=== PATIENT | female | born 1970 | race Caucasian/White ===

== ENCOUNTER 2019-02-01 22:11 | Observation (INO) | payer OTHER ==
[2019-02-01 22:17] VITALS: BMI 26.6
--- NOTE | 2019-02-01 22:31 | PDOC ---
History of Present Illness <Shayna La - Last Filed: 02/02/19 02:01> <Mamie Petersen - Last Filed: 02/03/19 18:43> - General Chief Complaint: CVA/TIA Stated Complaint: POSSIBLE STROKE Time Seen by Provider: 02/01/19 22:30 tPA Exclusion Checklist 0-3hr - Time Elapsed Date last known well: 02/01/19 Time last known well: 21:55 Elaspsed time: 1 Day(s) and 20 Hour(s) and 47 Minutes - Thrombolytic Therapy Candidate Is the patient eligible for Thrombolytic Therapy?: No - Relative Exclusion Criteria 0-3h Stroke severity too mild: Yes - Ineligibility reason(s) Reasons No tPA given: See reason(s) noted above <Mamei Petersen - Last Filed: 02/03/19 18:43> Past History <Shayna La - Last Filed: 02/02/19 02:01> - Past Medical History COPD: No - Suicide/Smoking/Psychosocial Hx Smoking Status: No Smoking History: Never smoked Number of Cigarettes Smoked Daily: 0 <Mamie Petersen - Last Filed: 02/03/19 18:43> - Past Medical History Allergies/Adverse Reactions: Allergies Allergy/AdvReac Type Severity Reaction Status Date / Time No Known Allergies Allergy Verified 04/23/16 19:54 Home Medications: Ambulatory Orders Acyclovir [Zovirax -] 400 mg PO TID #21 tablet 02/03/19 Aspirin Coated [Ecotrin -] 81 mg PO DAILY #30 tablet.ec 02/03/19 Atorvastatin Ca [Lipitor] 40 mg PO HS #30 tablet 02/03/19 Dextran 70/Hypromellose/Pf [Artificial Tears Drops] 1 each OP TID 7 Days #1 droperette 02/03/19 Levothyroxine [Synthroid -] 25 mcg PO DAILY #30 tablet 02/03/19 Prednisone See Taper PO DAILY #21 tablet 02/03/19 *Physical Exam - Vital Signs Last Vital Signs Temp Pulse Resp BP Pulse Ox 98.7 F 73 18 113/67 100 02/01/19 22:15 02/01/19 23:22 02/01/19 23:22 02/01/19 23:22 02/01/19 23:22 <Shayna La - Last Filed: 02/02/19 02:01> - Vital Signs Last Vital Signs Temp Pulse Resp BP Pulse Ox 98.7 F 80 18 126/69 97 02/01/19 22:15 02/01/19 22:15 02/01/19 22:15 02/01/19 22:15 02/01/19 22:15 <Mamie Petersen - Last Filed: 02/03/19 18:43> ED Treatment Course - LABORATORY CBC & Chemistry Diagram: 02/01/19 22:45 02/01/19 22:45 - ADDITIONAL ORDERS Additional order review: Laboratory Results 02/01/19 02/01/19 02/01/19 22:45 22:45 22:45 PT with INR 11.60 INR 0.98 PTT (Actin FS) 34.4 Sodium 139 Potassium 4.1 Chloride 106 Carbon Dioxide 26 Anion Gap 7 L BUN 8.6 Creatinine 0.8 Est GFR (CKD-EPI)AfAm 101.04 Est GFR (CKD-EPI)NonAf 87.18 Random Glucose 73 L Calcium 9.0 Total Bilirubin 0.3 AST 12 L ALT 21 Alkaline Phosphatase 62 Creatine Kinase 112 Troponin I < 0.02 Total Protein 8.2 Albumin 4.1 Triglycerides 156 H Cholesterol 264 H Total LDL Cholesterol 186 H HDL Cholesterol 65 H Serum , Qual 02/01/19 22:38 PT with INR INR PTT (Actin FS) Sodium Potassium Chloride Carbon Dioxide Anion Gap BUN Creatinine Est GFR (CKD-EPI)AfAm Est GFR (CKD-EPI)NonAf Random Glucose Calcium Total Bilirubin AST ALT Alkaline Phosphatase Creatine Kinase Troponin I Total Protein Albumin Triglycerides Cholesterol Total LDL Cholesterol HDL Cholesterol Serum , Qual Negative 02/01/19 22:45 RBC 4.86 MCV 83.1 MCHC 33.0 RDW 14.8 D MPV 8.6 Neutrophils % 52.1 Lymphocytes % 35.6 Monocytes % 9.2 Eosinophils % 2.6 Basophils % 0.5 - RADIOLOGY Radiology Studies Ordered: Category Date Time Status HEAD CT (STROKE) [CT] Stat CT Scan 02/01/19 22:32 Completed <Shayna La - Last Filed: 02/02/19 02:01> - LABORATORY CBC & Chemistry Diagram: 02/03/19 06:02 02/03/19 06:02 <Mamie Petersen - Last Filed: 02/03/19 18:43> Medical Decision Making - Medical Decision Making HPI: 48 yo F with PMH of migraines with aura, hypothyroidism presenting with right sided facial droop and slurred speech. Family members are at the bedside providing collateral history. About 15 minutes prior to arrival, patient was in conversation with her son. Her son told her he was leaving for [facility] with friends and she became very anxious, complained of R. sided facial numbness and pain and had a drooping smile on the right. No history of stroke. Patient denies fever, chills, chest pain, or shortness of breath. ROS: Constitutional: no fever, no chills HEENT: no throat pain, no dysphagia Cardiovascular: no chest pain, no palpitations Respiratory: no cough, no shortness of breath Gastrointestinal: no abdominal pain, no nausea Genitourinary: no dysuria, no hematuria Musculoskeletal: no myalgia, no arthralgia Skin: no rash, no itching Neurologic: +R. sided drooping smile, +slurred speech PE: General: Awake, alert, and fully oriented, in no acute distress Head: No signs of trauma Eyes: EOMI, sclera anicteric ENT: Moist mucus membranes Neck: Normal ROM, supple Lungs: Lungs clear, Normal breath sounds Cardio: Regular rhythm, S1 and S2 present Abdomen: Soft, nontender. No guarding, no rebound, no masses Extremities: Normal range of motion, Distal pulses present SKIN: Warm, Dry, normal turgor Neurologic: Please see NIHSS documentation. Drooping smile on the right. ED Courses/MDM: DDX including but not limited to CVA/TIA, Psych, complex migraine, secondary gain 02/01/19 23:29 Patient with incongruent exam. For me, patient was unable to resist gravity when asked to keep her BLE up. However, was able to perform [id number] without any difficulty. lift team technician also witnessed the patient stand without difficulty while assisting her to the bathroom. Will reassess 02/01/19 23:33 Patient reports improved facial symptoms, but still endorses unequal sensation the right vs. left side of her face. CBC WBC 7.9 K/mm3 (4.0-10.0) 02/01/19 22:45 RBC 4.86 M/mm3 (3.60-5.2) 02/01/19 22:45 Hgb 13.4 GM/dL (10.7-15.3) 02/01/19 22:45 Hct 40.4 % (32.4-45.2) D 02/01/19 22:45 MCV 83.1 fl (80-96) 02/01/19 22:45 MCH 27.5 pg (25.7-33.7) D 02/01/19 22:45 MCHC 33.0 g/dl (32.0-36.0) 02/01/19 22:45 RDW 14.8 % (11.6-15.6) D 02/01/19 22:45 Plt Count 281 K/MM3 (134-434) D 02/01/19 22:45 MPV 8.6 fl (7.5-11.1) 02/01/19 22:45 Absolute Neuts (auto) 4.1 K/mm3 (1.5-8.0) 02/01/19 22:45 Neutrophils % 52.1 % (42.8-82.8) 02/01/19 22:45 Lymphocytes % 35.6 % (8-40) 02/01/19 22:45 Monocytes % 9.2 % (3.8-10.2) 02/01/19 22:45 Eosinophils % 2.6 % (0-4.5) 02/01/19 22:45 Basophils % 0.5 % (0-2.0) 02/01/19 22:45 Nucleated RBC % 0 % (0-0) 02/01/19 22:45 No anemia or leukocytosis CMP Sodium 139 mmol/L (136-145) 02/01/19 22:45 Potassium 4.1 mmol/L (3.5-5.1) 02/01/19 22:45 Chloride 106 mmol/L (98-107) 02/01/19 22:45 Carbon Dioxide 26 mmol/L (21-32) 02/01/19 22:45 Anion Gap 7 MMOL/L (8-16) L 02/01/19 22:45 BUN 8.6 mg/dL (7-18) 02/01/19 22:45 Creatinine 0.8 mg/dL (0.55-1.3) 02/01/19 22:45 Est GFR (CKD-EPI)AfAm 101.04 02/01/19 22:45 Est GFR (CKD-EPI)NonAf 87.18 02/01/19 22:45 Random Glucose 73 mg/dL (74-106) L 02/01/19 22:45 Calcium 9.0 mg/dL (8.5-10.1) 02/01/19 22:45 Total Bilirubin 0.3 mg/dL (0.2-1) 02/01/19 22:45 AST 12 U/L (15-37) L 02/01/19 22:45 ALT 21 U/L (13-61) 02/01/19 22:45 Alkaline Phosphatase 62 U/L (45-117) 02/01/19 22:45 Creatine Kinase 112 U/L (26-192) 02/01/19 22:45 Troponin I < 0.02 ng/ml (0.00-0.05) 02/01/19 22:45 Total Protein 8.2 g/dl (6.4-8.2) 02/01/19 22:45 Albumin 4.1 g/dl (3.4-5.0) 02/01/19 22:45 Triglycerides 156 mg/dL (0-150) H 02/01/19 22:45 Cholesterol 264 mg/dL (50-200) H 02/01/19 22:45 Total LDL Cholesterol 186 mg/dL (5-100) H 02/01/19 22:45 HDL Cholesterol 65 mg/dL (40-60) H 02/01/19 22:45 Serum , Qual Negative 02/01/19 22:38 Electrolytes unremarkable Tpn undetectable Cholesterol elevated 02/01/19 23:59 Patient now with normal neuro exam. Symmetrical smile. Patient with normal strength in her legs. She is able to keep them raised for five seconds without any drift. Patient says she no longer has abnormal sensation in her face. Patient signed out to night team. 02/02/19 00:56 <Mamie Petersen - Last Filed: 02/03/19 18:43> *DC/Admit/Observation/Transfer - Discharge Dispostion Decision to Admit order: Yes <Shayna La - Last Filed: 02/02/19 02:01> <Mamie Petersen - Last Filed: 02/03/19 18:43> Diagnosis at time of Disposition: Facial droop - Discharge Dispostion Disposition: HOME Condition at time of disposition: Stable
--- NOTE | 2019-02-01 22:46 | PDOC ---
NIH Stroke Scale - Initial Evaluation Level of consciousness: Alert Ask patient the month and their age: Answers both correctly Ask patient to open & close eyes; make fist and let go: Obeys both correctly Best gaze (horizontal eye movement): Normal Visual field testing: No visual field loss Facial paresis (Show teeth/raise eyebrows/close eyes tight): Complete paralysis of one or both sides (Upper and lower face) Motor Function: Left Arm: Normal Motor Function: Right Arm: Normal (extends arm 90 (or 45) degrees for 10 seconds without drift Motor Function: Left Leg: Normal (extends leg 30 degrees for 5 seconds without drift) Motor Function: Right Leg: Normal (extends leg 30 degrees for 5 seconds without drift) Limb Ataxia: No ataxia Sensory(Use pinprick test arms,legs,trunk,face/side to side): Normal Best language (Describe picture, name items, read sentences): No Aphasia Dysarthria (read several words): Normal articulation Extinction and Inattention: No abnormality - Total Score NIH Stroke Scale Score: 3
[2019-02-01 22:54] LABS: BASO % 0.5 % (0-2.0); EOS % 2.6 % (0-4.5); HEMATOCRIT 40.4 % (32.4-45.2); HEMOGLOBIN 13.4 GM/dL (10.7-15.3); LYMPH % 35.6 % (8-40); MCH 27.5 pg (25.7-33.7); MEAN CELL VOLUME 83.1 fl (80-96); MEAN PLT VOLUME 8.6 fl (7.5-11.1); MONO % 9.2 % (3.8-10.2); NEUT % 52.1 % (42.8-82.8); PLATELET COUNT 281 K/MM3 (134-434); RBC 4.86 M/mm3 (3.60-5.2); RDW 14.8 % (11.6-15.6); WHITE BLOOD COUNT 7.9 K/mm3 (4.0-10.0)
[2019-02-01 23:11] LABS: INR 0.98 (0.83-1.09); PROTHROMBIN TIME (PATIENT) 11.6 SEC (9.7-13.0)
[2019-02-01 23:14] LABS: ACTIVATED PTT 34.4 SECONDS (25.2-36.5)
[2019-02-01 23:17] LABS: ALBUMIN 4.1 g/dl (3.4-5.0); BILIRUBIN,TOTAL 0.3 mg/dL (0.2-1); BLOOD UREA NITROGEN 8.6 mg/dL (7-18); CREATININE 0.8 mg/dL (0.55-1.3); POTASSIUM 4.1 mmol/L (3.5-5.1); TOT PROT 8.2 g/dl (6.4-8.2)
[2019-02-01] MEDS: SODIUM CHLORIDE 1,000 ML IV SCH (23:41)
--- NOTE | 2019-02-02 00:08 | PDOC ---
Documentation entered by Beatriz Styles SCRIBE, acting as scribe for Crystal Reynolds MD. Crystal Reynolds MD: This documentation has been prepared by the Jensen moy Brenda, SCRIBE, under my direction and personally reviewed by me in its entirety. I confirm that the documentation accurately reflects all work, treatment, procedures, and medical decision making performed by me. Attending Attestation - Resident Resident Name: Mamie Petersen - ED Attending Attestation I have performed the following: I have examined & evaluated the patient, The case was reviewed & discussed with the resident, I agree w/resident's findings & plan, Exceptions are as noted - HPI HPI: 02/01/19 23:37 The patient is a 48 year old female, with a significant PMH of migraines with auras and hypothyroidism, who presents to the emergency department BIB with a right sided facial droop and slurred speech, as per family. As per family, on the bedside, 15 minutes prior to arrival, patient was conersing fine with her son, who told her he was leaving to [place] with some friends, which madee hr very anxious, where symptoms began. Patient denies a history of stroke. The patient denies chest pain, shortness of breath.Denies fever, chills, nausea , vomiting, diarrhea and constipation. Denies urinary symptoms. Denies any other symptoms. Allergies: NKA Social history: Denies any tobacco use or alcohol use. PCP: Sathya - Physicial Exam PE: 02/01/19 23:11 GENERAL: Awake, alert, and fully oriented, in no acute distress HEAD: No signs of trauma EYES: PERRLA, EOMI, sclera anicteric, conjunctiva clear ENT: Auricles normal inspection, hearing grossly normal, nares patent, oropharynx clear without exudates. Moist mucosa NECK: Normal ROM, supple, no lymphadenopathy, JVD, or masses LUNGS: Breath sounds equal, clear to auscultation bilaterally. No wheezes, and no crackles HEART: Regular rate and rhythm, normal S1 and S2, no murmurs, rubs or gallops ABDOMEN: Soft, nontender, normoactive bowel sounds. No guarding, no rebound. No masses EXTREMITIES: Normal range of motion, no edema. No clubbing or cyanosis. No cords, erythema, or tenderness NEUROLOGICAL: +Right sided facial droop, except forehead. Cranial nerves II through XII grossly intact. Normal speech, normal gait SKIN: Warm, Dry, normal turgor, no rashes or lesions noted. - Medical Decision Making 02/02/19 00:07 Patient Name: KRISTIE GUY THIS IS A PRELIMINARY REPORT FROM [facility] DATE OF SERVICE: 2019-02-01 22:55:18 IMAGES: [id number] EXAM: CT brain without contrast and CTA brain HISTORY right-sided facial droop COMPARISON: None. FINDINGS: CT brain: The clinically suspected infarct is not definitively visible on CT at this time. There are some vaguely low density areas in the zarco radiata bilaterally but these could represent small vessel disease. Small vessel disease can obscure white matter infarcts. No hemorrhage. No mass. No shift or herniation. CTA brain: The anterior and posterior arterial circulations are patent. No stenosis or occlusion dissection or aneurysm. 02/02/19 06:39 Normal labs; only cholesterol is high. Pt will be admitted for neuro eval. Pt may need MRI in the AM.
--- NOTE | 2019-02-02 03:08 | PN ---
Teaching Attending Note Name of Resident: Liz Manrique ATTENDING PHYSICIAN STATEMENT I saw and evaluated the patient. I reviewed the resident's note and discussed the case with the resident. I agree with the resident's findings and plan as documented. Seen and examined; please refer to resident note for further historical information. Briefly, this is a 48 y/o female presenting to the ER with a CC of R-facial droop, parasthesias, weakness; her sx have resolved and she would have presented outside of the tPA window. She had this presentation following emotionally charged personal issue. VS, labs, imaging reviewed NIHSS is 0, CN2-12 wnl, no fnd Normal mood, appropriate behavior NC AT EOMI PERRLA NAD, resting in bed NT ND +BS RRR s1/2 CT head negative Echo, carotid doppler, MRI brain pendign On telemetry EKG reviewed; no ST-T changes or Afib ASSESSMENT AND PLAN: Patient presents with symptoms suspicious for TIA following emotional confrontation at home; negative initial CT, found to be hyperlipidemic. Starting on statin, ASA, and neurology will see in AM. # TIA vs. conversion, etc. -No recurrance sx; did occur following emotional instance. Tele, neuro consult , MRI/echo/carotids/PT/Swallow eval. Check B12/TSH/RPR/ESR/CRP. Further management per neuro. Started on ASA and high-intensity statin. # HLD -Started on statin, followup CMP DVT px: Lovenox Full Code
[2019-02-02 03:48] LABS: COCAINE, UR NEGATIVE ng/ml (CUTOFF=300); METHADONE, UR NEGATIVE ng/ml (CUTOFF=300); OPIATES, URI NEGATIVE ng/ml (CUTOFF=300); PHENCYCLIDINE,URINE NEGATIVE ng/ml (CUTOFF=25); URINE AMPHETAMINES NEGATIVE ng/ml (CUTOFF=500); URINE BARBITURATES NEGATIVE ng/ml (CUTOFF=200); URINE BENZODIAZEPINES NEGATIVE ng/ml (CUTOFF=200)
[2019-02-02] MEDS ORDERED: ATORVASTATIN CA 40 MG TABLET (FP) ONE (03:48)
[2019-02-02] MEDS: ATORVASTATIN CA 40 MG TABLET (FP) PO SCH ×2 (03:50→22:14)
--- NOTE | 2019-02-02 04:26 | HP ---
CHIEF COMPLAINT: R side facial droop PCP: HISTORY OF PRESENT ILLNESS: 48 y/o F with PMH migraines w/ aura, hypothyroidism, who presents with R sided facial droop and slurred speech that occurred at 10PM on DOA. She was well prior to this. Per pt and family at bedside, pt had a family discussion which caused the pt to become "emotionally charged." She soon after developed R sided facial droop, dysarthria, and subjective L arm drift noticed by son. For this reason, pt was brought to the ED for evaluation. Was outside tPA window and equivocal neuro exam on presentation w/ NIHSS 0. Pt has never had these sx before. Denies SHELLEY, fever, chills, SOB, chest pain or pressure or changes in urinary or bowel function. Lives at home with family. ER course was notable for: (1) NIHSS 0 (2) (3) Recent Travel: denies PAST MEDICAL HISTORY: as above PAST SURGICAL HISTORY: denies Social History: Smoking: denies Alcohol: social Drugs: denies Family History: denies Allergies No Known Allergies Allergy (Verified 04/23/16 19:54) HOME MEDICATIONS: Home Medications Medication Instructions Recorded NK [No Known Home Medication] 04/23/16 confirmed with patient REVIEW OF SYSTEMS +neuro: facial droop, LUE weakness/drift PHYSICAL EXAMINATION Vital Signs 02/01/19 02/01/19 22:15 23:22 Temperature 98.7 F Pulse Rate 80 Pulse Rate [ 73 Radial] Respiratory 18 18 Rate Blood Pressure 126/69 Blood Pressure 113/67 [Right Arm] O2 Sat by Pulse 97 100 Oximetry (%) GENERAL: AAOx 3 . in NAD . pleasant HEAD: Normal with no signs of trauma. EYES: Pupils equal, round and reactive to light, extraocular movements intact, sclera anicteric, conjunctiva clear. EARS, NOSE, THROAT: Ears normal, nares patent, oropharynx clear without exudates. Moist mucous membranes. NECK: Normal range of motion, supple LUNGS: Breath sounds equal, clear to auscultation bilaterally. No wheezes, and no crackles. HEART: Regular rate and rhythm, normal S1 and S2 without murmur, rub or gallop. ABDOMEN: Soft, nontender, not distended, normoactive bowel sounds NEUROLOGICAL: Cranial nerves II-XII intact. cerebellar fnc intact. no pronator drift. sensation intact throughout. 5/5 motor strength UE, LE. PSYCHIATRIC: Cooperative. Good eye contact. SKIN: Warm, dry, normal turgor Laboratory Tests 02/01/19 02/01/19 22:45 22:45 WBC 7.9 Hgb 13.4 Hct 40.4 D Plt Count 281 D Sodium 139 Potassium 4.1 Chloride 106 Carbon Dioxide 26 BUN 8.6 Creatinine 0.8 Random Glucose 73 L Triglycerides 156 H Cholesterol 264 H Total LDL Cholesterol 186 H HDL Cholesterol [address]: no acute abnormality head CTA: no bleed, no ischemic changes EKG: NSR, HR 70's, no st-t wave changes ASSESSMENT/PLAN: 48 y/o F with PMH migraines w/ aura, hypothyroidism, who presents with R sided facial droop and slurred speech that occurred at 10PM on DOA. #R/o CVA -CTH (-) for bleed. may be ischemic event. tele monitoring x 24 hrs -f/u ECHO, carotid duplex, speech/swallow, PT -f/u TSH, b12, folate -neuro consulted- follow recs whether brain MRI needed -started on asa 81mg qd, lipitor 40mg qd. will repeat LFT's in 6 weeks -NPO, neurochecks #F/E/N encourage PO intake continue to follow lytes npo until s/s #PPX DVT: lovenox #Dispo tele obs Visit type - Emergency Visit Emergency Visit: Yes ED Registration Date: 02/02/19 Care time: The patient presented to the Emergency Department on the above date and was hospitalized for further evaluation of their emergent condition. - New Patient This patient is new to me today: Yes Date on this admission: 02/02/19 - Critical Care Critical Care patient: No ATTENDING PHYSICIAN STATEMENT I saw and evaluated the patient. I reviewed the resident's note and discussed the case with the resident. I agree with the resident's findings and plan as documented. SUBJECTIVE: OBJECTIVE: ASSESSMENT AND PLAN:
[2019-02-02 06:08] LABS: URINE APPEARANCE CLEAR; URINE BILIRUBIN NEGATIVE (NEGATIVE); URINE COLOR YELLOW; URINE GLUCOSE (UA) NEGATIVE (NEGATIVE); URINE KETONE NEGATIVE (NEGATIVE)
[2019-02-02 06:09] LABS: URINE LEUK ESTERASE N (NEGATIVE); URINE NITRITE NEGATIVE (NEGATIVE); URINE PROTEIN NEGATIVE (NEGATIVE); URINE UROBILINOGEN 0.2 mg/dL (0.2-1.0)
[2019-02-02 07:59] LABS: BASO % 0.5 % (0-2.0); EOS % 3.9 % (0-4.5); HEMATOCRIT 36.9 % (32.4-45.2); HEMOGLOBIN 12.4 GM/dL (10.7-15.3); LYMPH % 38.9 % (8-40); MCH 27.7 pg (25.7-33.7); MCHC 33.5 g/dl (32.0-36.0); MEAN CELL VOLUME 82.8 fl (80-96); MEAN PLT VOLUME 8.6 fl (7.5-11.1); NEUT % 46.7 % (42.8-82.8); PLATELET COUNT 267 K/MM3 (134-434); RBC 4.46 M/mm3 (3.60-5.2); RDW 14.4 % (11.6-15.6); WHITE BLOOD COUNT 5.6 K/mm3 (4.0-10.0)
[2019-02-02 08:07] LABS: BLOOD UREA NITROGEN 8.4 mg/dL (7-18); CALCIUM 8.4 mg/dL (8.5-10.1); CREATININE 0.7 mg/dL (0.55-1.3); MAGNESIUM 2.4 mg/dL (1.8-2.4); POTASSIUM 3.9 mmol/L (3.5-5.1)
[2019-02-02 08:14] LABS: N-TERMINAL BNP 85.5 pg/ml (5-125)
[2019-02-02] MEDS ORDERED: HEPARIN NA (PORCINE) 5,000 UNITS/ML 1ML VIAL ONE (10:05)
[2019-02-02] MEDS ORDERED: ASPIRIN COATED 81 MG TABLET.EC ONE (10:05)
[2019-02-02] MEDS: ASPIRIN COATED 81 MG TABLET.EC PO SCH (10:18)
[2019-02-02] MEDS: ENOXAPARIN NA (PORCINE) 40 MG/0.4 ML DISP.SYRIN SQ SCH (10:19)
--- NOTE | 2019-02-02 11:39 | CONSULT ---
Consult - text type - Consultation Consultation Note: NEUROLOGY HISTORY OF PRESENT ILLNESS: 48 y/o F with PMH migraines w/ aura, hypothyroidism, who presented to ER with R sided facial droop and slurred speech that occurred at 10PM on day of admission. She was well prior to this event. As per pt and family at bedside, pt had a family discussion which caused the pt to become "emotionally charged." She soon after developed R sided facial droop, dysarthria, and subjective L arm drift noticed by son. For this reason, pt was brought to the ED for evaluation. Was outside tPA window and equivocal neuro exam on presentation w/ NIHSS 0. Pt has never had these sx before. Denied SHELLEY, fever, chills, SOB, chest pain or pressure or changes in urinary or bowel function. Lives at home with family. CTA completed, awaiting official report. CT head without acute changes. Will obtain MRI to evaluate for infarct. Recent Travel: denies PAST MEDICAL HISTORY: as above PAST SURGICAL HISTORY: denies Social History: Smoking: denies Alcohol: social Drugs: denies Family History: HTN Allergies No Known Allergies Allergy (Verified 04/23/16 19:54) HOME MEDICATIONS: Home Medications Medication Instructions Recorded NK [No Known Home Medication] 04/23/16 REVIEW OF SYSTEMS +neuro: facial droop All else negative PHYSICAL EXAMINATION Vital Signs Temperature 98.7 F 02/01/19 22:15 Pulse Rate 68 02/02/19 11:05 Respiratory Rate 14 02/02/19 11:05 Blood Pressure 112/73 02/02/19 11:05 O2 Sat by Pulse Oximetry (%) 98 02/02/19 11:05 GENERAL: AAOx 3 . in NAD . pleasant HEAD: Normal with no signs of trauma. EYES: Pupils equal, round and reactive to light, extraocular movements intact, sclera anicteric, conjunctiva clear. EARS, NOSE, THROAT: Ears normal, nares patent, oropharynx clear without exudates. Moist mucous membranes. NECK: Normal range of motion, supple LUNGS: Breath sounds equal, clear to auscultation bilaterally. No wheezes, and no crackles. HEART: Regular rate and rhythm, normal S1 and S2 without murmur, rub or gallop. ABDOMEN: Soft, nontender, not distended, normoactive bowel sounds NEUROLOGICAL: R facial droop noted. cerebellar intact. no pronator drift. sensation intact throughout. Grossly moving ext equally, limited effort on confrontation PSYCHIATRIC: Cooperative. Good eye contact. SKIN: Warm, dry, normal turgor CBCD WBC 5.6 K/mm3 (4.0-10.0) 02/02/19 06:57 RBC 4.46 M/mm3 (3.60-5.2) 02/02/19 06:57 Hgb 12.4 GM/dL (10.7-15.3) 02/02/19 06:57 Hct 36.9 % (32.4-45.2) 02/02/19 06:57 MCV 82.8 fl (80-96) 02/02/19 06:57 MCHC 33.5 g/dl (32.0-36.0) 02/02/19 06:57 RDW 14.4 % (11.6-15.6) 02/02/19 06:57 Plt Count 267 K/MM3 (134-434) 02/02/19 06:57 MPV 8.6 fl (7.5-11.1) 02/02/19 06:57 CMP Sodium 140 mmol/L (136-145) 02/02/19 06:57 Potassium 3.9 mmol/L (3.5-5.1) 02/02/19 06:57 Chloride 108 mmol/L (98-107) H 02/02/19 06:57 Carbon Dioxide 25 mmol/L (21-32) 02/02/19 06:57 Anion Gap 8 MMOL/L (8-16) 02/02/19 06:57 BUN 8.4 mg/dL (7-18) 02/02/19 06:57 Creatinine 0.7 mg/dL (0.55-1.3) 02/02/19 06:57 Random Glucose 82 mg/dL (74-106) 02/02/19 06:57 Calcium 8.4 mg/dL (8.5-10.1) L 02/02/19 06:57 Total Bilirubin 0.3 mg/dL (0.2-1) 02/01/19 22:45 AST 12 U/L (15-37) L 02/01/19 22:45 ALT 21 U/L (13-61) 02/01/19 22:45 Alkaline Phosphatase 62 U/L (45-117) 02/01/19 22:45 Total Protein 8.2 g/dl (6.4-8.2) 02/01/19 22:45 Albumin 4.1 g/dl (3.4-5.0) 02/01/19 22:45 CARDIAC ENZYMES Creatine Kinase 112 U/L (26-192) 02/01/19 22:45 Troponin I < 0.02 ng/ml (0.00-0.05) 02/01/19 22:[address]: no acute abnormality head CTA: completed, pending Carotid Doppler: completed, pending ASSESSMENT/PLAN: 48 y/o F with PMH migraines w/ aura, hypothyroidism, who presented to ER with R sided facial droop and slurred speech that occurred at 10PM on day of admission. She was well prior to this event. As per pt and family at bedside, pt had a family discussion which caused the pt to become "emotionally charged." She soon after developed R sided facial droop, dysarthria, and subjective L arm drift noticed by son. For this reason, pt was brought to the ED for evaluation. Was outside tPA window and equivocal neuro exam on presentation w/ NIHSS 0. Pt has never had these sx before. Denied SHELLEY, fever, chills, SOB, chest pain or pressure or changes in urinary or bowel function. Lives at home with family. CTA completed, awaiting official report. CT head without acute changes. Will obtain MRI to evaluate for infarct. Tele monitoring, still with residual R facial but is improving. Monitor TSH. Follow up carotid doppler.
--- NOTE | 2019-02-02 12:58 | PN ---
Physical Exam: SUBJECTIVE: Patient seen and examined, pt reports right sided numbness that started at home. see by Neuro MRI ordered TSH 7.80 pt reports being on medication for thyroid, self stopped 2 yrs ago, pt was seeing an [facility] [employer], TSH was normal and was told by she does not need to be on synthroid T4 ordered for AM, pt does not want to take any meds right now, advised to follow up with Endo outpt pt drank water and coffee in ED, no dysphagia reported OBJECTIVE: Vital Signs Period Temp Pulse Resp BP Sys/Hammer Pulse Ox Last 24 Hr 98.7 F 62-80 14-20 109-126/67-95 97-100 GENERAL: The patient is awake, alert, and fully oriented, in no acute distress. HEAD: Normal with no signs of trauma. EYES: PERRL, extraocular movements intact, sclera anicteric, conjunctiva clear. No ptosis. ENT: Ears normal, nares patent, oropharynx clear without exudates, moist mucous membranes. NECK: Trachea midline, full range of motion, supple. LUNGS: Breath sounds equal, clear to auscultation bilaterally, no wheezes, no crackles, no accessory muscle use. HEART: Regular rate and rhythm, S1, S2 without murmur, rub or gallop. ABDOMEN: Soft, nontender, nondistended, normoactive bowel sounds, no guarding, no rebound, no hepatosplenomegaly, no masses. EXTREMITIES: 2+ pulses, warm, well-perfused, no edema. NEUROLOGICAL: Cranial nerves II through XII grossly intact. Normal speech, gait not observed. PSYCH: Normal mood, normal affect. SKIN: Warm, dry, normal turgor, no rashes or lesions noted Laboratory Results - last 24 hr 02/01/19 02/01/19 02/01/19 22:38 22:45 22:45 WBC 7.9 RBC 4.86 Hgb 13.4 Hct 40.4 D MCV 83.1 MCH 27.5 D MCHC 33.0 RDW 14.8 D Plt Count 281 D MPV 8.6 Absolute Neuts (auto) 4.1 Neutrophils % 52.1 Lymphocytes % 35.6 Monocytes % 9.2 Eosinophils % 2.6 Basophils % 0.5 Nucleated RBC % 0 PT with INR INR PTT (Actin FS) Sodium Potassium Chloride Carbon Dioxide Anion Gap BUN Creatinine Est GFR (CKD-EPI)AfAm Est GFR (CKD-EPI)NonAf Random Glucose Hemoglobin A1c % Calcium Phosphorus Magnesium Total Bilirubin AST ALT Alkaline Phosphatase Creatine Kinase 112 Troponin I < 0.02 B-Natriuretic Peptide Total Protein Albumin Triglycerides Cholesterol Total LDL Cholesterol HDL Cholesterol Vitamin B12 Serum Folate TSH Serum , Qual Negative Urine Color Urine Appearance Urine pH Ur Specific Foley Urine Protein Urine Glucose (UA) Urine Ketones Urine Blood Urine Nitrite Urine Bilirubin Urine Urobilinogen Ur Leukocyte Esterase Opiates Screen Methadone Screen Barbiturate Screen Phencyclidine Screen Ur Amphetamines Screen MDMA (Ecstasy) Screen Benzodiazepines Screen Cocaine Screen U Marijuana (THC) Screen RPR Titer 02/01/19 02/01/19 02/02/19 22:45 22:45 03:10 WBC RBC Hgb Hct MCV MCH MCHC RDW Plt Count MPV Absolute Neuts (auto) Neutrophils % Lymphocytes % Monocytes % Eosinophils % Basophils % Nucleated RBC % PT with INR 11.60 INR 0.98 PTT (Actin FS) 34.4 Sodium 139 Potassium 4.1 Chloride 106 Carbon Dioxide 26 Anion Gap 7 L BUN 8.6 Creatinine 0.8 Est GFR (CKD-EPI)AfAm 101.04 Est GFR (CKD-EPI)NonAf 87.18 Random Glucose 73 L Hemoglobin A1c % Calcium 9.0 Phosphorus Magnesium Total Bilirubin 0.3 AST 12 L ALT 21 Alkaline Phosphatase 62 Creatine Kinase Troponin I B-Natriuretic Peptide Total Protein 8.2 Albumin 4.1 Triglycerides 156 H Cholesterol 264 H Total LDL Cholesterol 186 H HDL Cholesterol 65 H Vitamin B12 Serum Folate TSH Serum , Qual Urine Color Urine Appearance Urine pH Ur Specific Foley Urine Protein Urine Glucose (UA) Urine Ketones Urine Blood Urine Nitrite Urine Bilirubin Urine Urobilinogen Ur Leukocyte Esterase Opiates Screen Negative Methadone Screen Negative Barbiturate Screen Negative Phencyclidine Screen Negative Ur Amphetamines Screen Negative MDMA (Ecstasy) Screen Negative Benzodiazepines Screen Negative Cocaine Screen Negative U Marijuana (THC) Screen Negative RPR Titer 02/02/19 02/02/19 02/02/19 03:10 06:57 06:57 WBC 5.6 RBC 4.46 Hgb 12.4 Hct 36.9 MCV 82.8 MCH 27.7 MCHC 33.5 RDW 14.4 Plt Count 267 MPV 8.6 Absolute Neuts (auto) 2.6 Neutrophils % 46.7 Lymphocytes % 38.9 Monocytes % 10.0 Eosinophils % 3.9 Basophils % 0.5 Nucleated RBC % 0 PT with INR INR PTT (Actin FS) Sodium 140 Potassium 3.9 Chloride 108 H Carbon Dioxide 25 Anion Gap 8 BUN 8.4 Creatinine 0.7 Est GFR (CKD-EPI)AfAm 118.74 Est GFR (CKD-EPI)NonAf 102.45 Random Glucose 82 Hemoglobin A1c % Calcium 8.4 L Phosphorus Cancelled Magnesium 2.4 Total Bilirubin AST ALT Alkaline Phosphatase Creatine Kinase Troponin I B-Natriuretic Peptide 85.5 Total Protein Albumin Triglycerides Cholesterol Total LDL Cholesterol HDL Cholesterol Vitamin B12 Cancelled Serum Folate Cancelled TSH Cancelled Serum , Qual Urine Color Yellow Urine Appearance Clear Urine pH 7.0 Ur Specific Foley 1.050 H Urine Protein Negative Urine Glucose (UA) Negative Urine Ketones Negative Urine Blood N Urine Nitrite Negative Urine Bilirubin Negative Urine Urobilinogen 0.2 Ur Leukocyte Esterase N Opiates Screen Methadone Screen Barbiturate Screen Phencyclidine Screen Ur Amphetamines Screen MDMA (Ecstasy) Screen Benzodiazepines Screen Cocaine Screen U Marijuana (THC) Screen RPR Titer 02/02/19 02/02/19 02/02/19 07:40 07:40 07:40 WBC RBC Hgb Hct MCV MCH MCHC RDW Plt Count MPV Absolute Neuts (auto) Neutrophils % Lymphocytes % Monocytes % Eosinophils % Basophils % Nucleated RBC % PT with INR INR PTT (Actin FS) Sodium Potassium Chloride Carbon Dioxide Anion Gap BUN Creatinine Est GFR (CKD-EPI)AfAm Est GFR (CKD-EPI)NonAf Random Glucose Hemoglobin A1c % 5.1 Calcium Phosphorus Magnesium Total Bilirubin AST ALT Alkaline Phosphatase Creatine Kinase Troponin I B-Natriuretic Peptide Total Protein Albumin Triglycerides Cholesterol Total LDL Cholesterol HDL Cholesterol Vitamin B12 364 Serum Folate 27 H TSH 7.80 H Serum , Qual Urine Color Urine Appearance Urine pH Ur Specific Foley Urine Protein Urine Glucose (UA) Urine Ketones Urine Blood Urine Nitrite Urine Bilirubin Urine Urobilinogen Ur Leukocyte Esterase Opiates Screen Methadone Screen Barbiturate Screen Phencyclidine Screen Ur Amphetamines Screen MDMA (Ecstasy) Screen Benzodiazepines Screen Cocaine Screen U Marijuana (THC) Screen RPR Titer Nonreactive Active Medications Generic Name Dose Route Start Last Admin Trade Name Freq PRN Reason Stop Dose Admin Aspirin 81 mg 02/02/19 10:00 02/02/19 10:18 Ecotrin - PO 81 mg DAILY ROXANN Administration Atorvastatin Calcium 40 mg 02/02/19 02:52 02/02/19 03:50 Lipitor - PO 40 mg HS ROXANN Administration Enoxaparin Sodium 40 mg 02/02/19 10:00 02/02/19 10:19 Lovenox - SQ Not Given DAILY [facility] Sodium Chloride 1,000 mls @ 42 mls/hr 02/01/19 22:30 02/01/19 23:41 Normal Saline - IV 42 mls/hr ASDIR ROXANN Administration ASSESSMENT/PLAN: 48 y/o F with PMH migraines w/ aura, hypothyroidism, who presents with R sided facial droop and slurred speech that occurred at 10PM on DOA. #R/o CVA -CTH (-) for bleed. may be ischemic event. tele monitoring x 24 hrs -f/u ECHO, carotid duplex, speech/swallow, PT -f/u TSH, b12, folate -neuro following,MRI ordered -started on asa 81mg qd, -Lpid panel last night elevated, will check fasting in AM -lipitor 40mg qd -neurochecks -reg diet #Hypothyroidism -TSH 7.80 -T4 ordered -pt has been off synthroid past 2 years, would like to see her endo dr before starting medication #F/E/N encourage PO intake continue to follow lytes Diet reg #PPX DVT: lovenox -pt refusing #Dispo tele obs Visit type - Emergency Visit Emergency Visit: Yes ED Registration Date: 02/02/19 Care time: The patient presented to the Emergency Department on the above date and was hospitalized for further evaluation of their emergent condition. - New Patient This patient is new to me today: Yes Date on this admission: 02/02/19 - Critical Care Critical Care patient: No
[2019-02-02] MEDS: SODIUM CHLORIDE 1,000 ML IV SCH (22:14)
[2019-02-03 06:54] LABS: BASO % 0.5 % (0-2.0); EOS % 4.1 % (0-4.5); HEMATOCRIT 37.9 % (32.4-45.2); HEMOGLOBIN 12.7 GM/dL (10.7-15.3); LYMPH % 34.8 % (8-40); MCH 27.7 pg (25.7-33.7); MCHC 33.5 g/dl (32.0-36.0); MEAN CELL VOLUME 82.9 fl (80-96); MEAN PLT VOLUME 8.7 fl (7.5-11.1); MONO % 9.3 % (3.8-10.2); NEUT % 51.3 % (42.8-82.8); PLATELET COUNT 280 K/MM3 (134-434); RBC 4.57 M/mm3 (3.60-5.2); RDW 14.9 % (11.6-15.6); WHITE BLOOD COUNT 6.7 K/mm3 (4.0-10.0)
[2019-02-03 07:20] LABS: ALBUMIN 3.4 g/dl (3.4-5.0); BILIRUBIN,TOTAL 0.5 mg/dL (0.2-1); BLOOD UREA NITROGEN 12.7 mg/dL (7-18); CALCIUM 8.4 mg/dL (8.5-10.1); CREATININE 0.8 mg/dL (0.55-1.3); MAGNESIUM 2.2 mg/dL (1.8-2.4); TOT PROT 6.8 g/dl (6.4-8.2)
[2019-02-03 09:33] VITALS: BP 105/68; PULSE 76; TEMP 98.6
[2019-02-03] MEDS: ENOXAPARIN NA (PORCINE) 40 MG/0.4 ML DISP.SYRIN SQ SCH (09:34)
[2019-02-03] MEDS: ASPIRIN COATED 81 MG TABLET.EC PO SCH (09:34)
--- NOTE | 2019-02-03 10:31 | PN ---
Progress Note (short form) - Note Progress Note: NEUROLOGY HISTORY OF PRESENT ILLNESS: 48 y/o F with PMH migraines w/ aura, hypothyroidism, who presented to ER with R sided facial droop and slurred speech that occurred at 10PM on day of admission. She was well prior to this event. As per pt and family at bedside, pt had a family discussion which caused the pt to become "emotionally charged." She soon after developed R sided facial droop, dysarthria, and subjective L arm drift noticed by son. For this reason, pt was brought to the ED for evaluation. Was outside tPA window and equivocal neuro exam on presentation w/ NIHSS 0. Pt has never had these sx before. Denied SHELLEY, fever, chills, SOB, chest pain or pressure or changes in urinary or bowel function. Lives at home with family. CTA completed, with no acute changes. Carotid Doppler completed, with no stenosis identified. CT head without acute changes. Brain MRI completed, with no evidence of acute changes. discussed with patient and she reported feeling near baseline and no significant facial asymmetry noted. 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 Otherwise neurologically baseline. Active Medications Aspirin (Ecotrin -) 81 mg PO DAILY [facility] Last Admin: 02/03/19 09:34 Dose: 81 mg Atorvastatin Calcium (Lipitor -) 40 mg PO HS [facility] Last Admin: 02/02/19 22:14 Dose: 40 mg Enoxaparin Sodium (Lovenox -) 40 mg SQ DAILY [facility] Last Admin: 02/03/19 09:34 Dose: Not Given Sodium Chloride (Normal Saline -) 1,000 mls @ 42 mls/hr IV ASDIR [facility] Last Admin: 02/02/19 22:14 Dose: 42 mls/hr PHYSICAL EXAMINATION Vital Signs Temperature 98.6 F 02/03/19 09:32 Pulse Rate 76 02/03/19 09:32 Respiratory Rate 16 02/03/19 09:53 Blood Pressure 105/68 02/03/19 09:32 O2 Sat by Pulse Oximetry (%) 98 02/03/19 09:53 GENERAL: AAOx 3 . in NAD . pleasant HEAD: Normal with no signs of trauma. EYES: Pupils equal, round and reactive to light, extraocular movements intact, sclera anicteric, conjunctiva clear. EARS, NOSE, THROAT: Ears normal, nares patent, oropharynx clear without exudates. Moist mucous membranes. NECK: Normal range of motion, supple LUNGS: Breath sounds equal, clear to auscultation bilaterally. No wheezes, and no crackles. HEART: Regular rate and rhythm, normal S1 and S2 without murmur, rub or gallop. ABDOMEN: Soft, nontender, not distended, normoactive bowel sounds NEUROLOGICAL: R facial droop noted. cerebellar intact. no pronator drift. sensation intact throughout. Grossly moving ext equally, limited effort on confrontation PSYCHIATRIC: Cooperative. Good eye contact. SKIN: Warm, dry, normal turgor CBCD WBC 6.7 K/mm3 (4.0-10.0) 02/03/19 06:02 RBC 4.57 M/mm3 (3.60-5.2) 02/03/19 06:02 Hgb 12.7 GM/dL (10.7-15.3) 02/03/19 06:02 Hct 37.9 % (32.4-45.2) 02/03/19 06:02 MCV 82.9 fl (80-96) 02/03/19 06:02 MCHC 33.5 g/dl (32.0-36.0) 02/03/19 06:02 RDW 14.9 % (11.6-15.6) 02/03/19 06:02 Plt Count 280 K/MM3 (134-434) 02/03/19 06:02 MPV 8.7 fl (7.5-11.1) 02/03/19 06:02 CMP Sodium 141 mmol/L (136-145) 02/03/19 06:02 Potassium 4.0 mmol/L (3.5-5.1) 02/03/19 06:02 Chloride 108 mmol/L (98-107) H 02/03/19 06:02 Carbon Dioxide 25 mmol/L (21-32) 02/03/19 06:02 Anion Gap 8 MMOL/L (8-16) 02/03/19 06:02 BUN 12.7 mg/dL (7-18) 02/03/19 06:02 Creatinine 0.8 mg/dL (0.55-1.3) 02/03/19 06:02 Random Glucose 89 mg/dL (74-106) 02/03/19 06:02 Calcium 8.4 mg/dL (8.5-10.1) L 02/03/19 06:02 Total Bilirubin 0.5 mg/dL (0.2-1) 02/03/19 06:02 AST 11 U/L (15-37) L 02/03/19 06:02 ALT 17 U/L (13-61) 02/03/19 06:02 Alkaline Phosphatase 44 U/L (45-117) L 02/03/19 06:02 Total Protein 6.8 g/dl (6.4-8.2) 02/03/19 06:02 Albumin 3.4 g/dl (3.4-5.0) 02/03/19 06:02 CARDIAC ENZYMES Creatine Kinase 112 U/L (26-192) 02/01/19 22:45 Troponin I < 0.02 ng/ml (0.00-0.05) 02/01/19 22:[address]: no acute abnormality head CTA: completed, no acute abnormality Carotid Doppler: completed, no evidence of stenosis Brain MRI: no acute abnormality ASSESSMENT/PLAN: 48 y/o F with PMH migraines w/ aura, hypothyroidism, who presented to ER with R sided facial droop and slurred speech that occurred at 10PM on day of admission. She was well prior to this event. As per pt and family at bedside, pt had a family discussion which caused the pt to become "emotionally charged." She soon after developed R sided facial droop, dysarthria, and subjective L arm drift noticed by son. For this reason, pt was brought to the ED for evaluation. Was outside tPA window and equivocal neuro exam on presentation w/ NIHSS 0. Pt has never had these sx before. Denied SHELLEY, fever, chills, SOB, chest pain or pressure or changes in urinary or bowel function. Lives at home with family. CTA completed, with no acute changes. Carotid Doppler completed, with no stenosis identified. CT head without acute changes. Brain MRI completed, with no evidence of acute changes. discussed with patient and she reported feeling near baseline and no significant facial asymmetry noted. 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 Otherwise neurologically baseline.
--- NOTE | 2019-02-03 10:40 | EKG ---
Test Reason : Blood Pressure : / mmHG Vent. Rate : 073 BPM Atrial Rate : 073 BPM P-R Int : 114 ms QRS Dur : 088 ms QT Int : 434 ms P-R-T Axes : 049 052 037 degrees QTc Int : 478 ms NORMAL SINUS RHYTHM NORMAL ECG NO PREVIOUS ECGS AVAILABLE Confirmed by SOLA BOYCE MD ([id number]) on 02/03/2019 10:40:24 AM Referred By: Confirmed By:SOLA BOYCE MD
--- NOTE | 2019-02-03 12:09 | PN ---
Teaching Attending Note Name of Resident: Asya Landeros ATTENDING PHYSICIAN STATEMENT I saw and evaluated the patient. I reviewed the resident's note and discussed the case with the resident. I agree with the resident's findings and plan as documented. SUBJECTIVE:R face still feel "awkward". much improvement since yesterday. Arm symptoms resolved. Denies Cp, SOB, fever, chills, N/V/C/D OBJECTIVE: Last Vital Signs Temp Pulse Resp BP Pulse Ox 98.6 F 76 16 105/68 98 02/03/19 09:32 02/03/19 09:32 02/03/19 09:53 02/03/19 09:32 02/03/19 09:53 General NAD Neuro very minimal flattening of R nasolabial fold. no other CN deficits ASSESSMENT AND PLAN: 48yo F wtih PMHhypothyroid and migraines with aura prsented with R facial weakness and slurred speech 1. R facial weakness- r/o CVA vs bells palsy. MRI and imaging all negative. will treat for Elberon Palsy. started on tapering dose of steroids and acyclovir. will need neuro f/u outpatient 2. hypothyroid- not compliant with medications. now agreeable to starting synthroid. will start low dose. will need repeat TSH in 6 weeks 3. dyslipidemia- started on statin here. educated on dietary changes 4. Migraine with aura 5. d/c home iw PMD and neuro follow up
[2019-02-03] MEDS ORDERED: predniSONE 20 MG TABLET (UD) PO ONE (13:30)
--- NOTE | 2019-02-03 16:42 | DS ---
Physical Exam: SUBJECTIVE: Patient seen and examined. No complaints, denies CP/ SOB/ fatigue/ dizziness/ N/V/D/ fevers/ chills. Denies blurry vision. OBJECTIVE: Vital Signs Period Temp Pulse Resp BP Sys/Hammer Pulse Ox Last 24 Hr 97.5 F-99.0 F 62-77 16-20 105-146/56-80 98-99 PHYSICAL EXAM GENERAL: The patient is awake, alert, and fully oriented, in no acute distress. HEENT: NCAT. PERRLA. EOMI. NECK: No goiter present. LUNGS: Breath sounds equal, clear to auscultation bilaterally, no wheezes, no crackles, no accessory muscle use. HEART: Regular rate and rhythm, S1, S2 without murmur, rub or gallop. ABDOMEN: Soft, nontender, nondistended, normoactive bowel sounds, no guarding, no masses. EXTREMITIES: 2+ pulses, warm, well-perfused, no edema. NEUROLOGICAL: CN 2-12 intact. PSYCH: Normal mood, normal affect. SKIN: Warm, dry, normal turgor, no rashes or lesions noted. LABS Laboratory Results - last 24 hr 02/03/19 02/03/19 06:02 06:02 WBC 6.7 RBC 4.57 Hgb 12.7 Hct 37.9 MCV 82.9 MCH 27.7 MCHC 33.5 RDW 14.9 Plt Count 280 MPV 8.7 Absolute Neuts (auto) 3.5 Neutrophils % 51.3 Lymphocytes % 34.8 Monocytes % 9.3 Eosinophils % 4.1 Basophils % 0.5 Nucleated RBC % 0 Sodium 141 Potassium 4.0 Chloride 108 H Carbon Dioxide 25 Anion Gap 8 BUN 12.7 Creatinine 0.8 Est GFR (CKD-EPI)AfAm 101.04 Est GFR (CKD-EPI)NonAf 87.18 Random Glucose 89 Calcium 8.4 L Magnesium 2.2 Total Bilirubin 0.5 AST 11 L ALT 17 Alkaline Phosphatase 44 L Total Protein 6.8 Albumin 3.4 Triglycerides 121 Cholesterol 222 H Total LDL Cholesterol 159 H HDL Cholesterol 50 Free T4 0.80 HOSPITAL COURSE: Date of Admission:02/02/19 Date of Discharge: 02/03/19 Discharge Summary Reason For Visit: FACIAL DROOP Condition: Stable - Instructions Diet, Activity, Other Instructions: Your visit: You presented to the hospital for right sided facial weakness. You had imaging done of your head and neck which was negative. You were treated with medications. While you were here, you were found to have high cholesterol. Please follow this up with your primary care provider. You will need repeat liver function testing in 1 month since we have started you on a medication for your cholesterol. You also have decreased thyroid function. We recommended that you take medication for your thyroid. Please talk to your primary care doctor as you will need repeat thyroid function testing in 6 weeks after starting this medication. Medication Changes: 1. Please take Acyclovir 400mg three times per day. You will stop taking this medication on 02/10/19 2. Your steroid taper is as follows: -6 tablets of 10mg prednisone (60mg total) 02/04/19 -5 tablets of 10mg prednisone (50mg total) 02/05/19 -4 tablets of 10mg prednisone (40mg total) 02/06/19 -3 tablets of 10mg prednisone (30mg total) 02/07/19 -2 tablets of 10mg prednisone (20mg total) 02/08/19 -1 tablet of 10mg prednisone (10mg total) 02/09/19 You will stop taking this medication on 02/09/19 3. Please take Atorvastatin 40mg by mouth every day. 4. Please take baby aspirin 81mg by mouth every day. 5. Please take Levothyroxine 25mcg by mouth every day in the morning. 6. Please use the eye drops every day, as needed. Follow up with the following physicians: 1. Primary care provider (Dr. Barrios) in 1 week. 2. Neurology (Dr. Candelario) in 1 week. Further intructions: You are being discharged to your home. Please make sure to eat a low cholesterol, low fat diet. Please return to the ER if you have any signs or symptoms of chest pain, shortness of breath, palpitations, confusion, dizziness, abdominal pain, fevers , fatigue, vomiting, diarrhea, muscle pains or weakness. Please return to the ER if symptoms persist, worsen, or new symptoms arise. Referrals: Marcial Candelario MD [Staff Physician] - 1 Week Chelsea Rees MD [Primary Care Provider] - 1 Week Disposition: HOME - Home Medications Comprehensive Discharge Medication List: Ambulatory Orders Acyclovir [Zovirax -] 400 mg PO TID #21 tablet 02/03/19 Aspirin Coated [Ecotrin -] 81 mg PO DAILY #30 tablet.ec 02/03/19 Atorvastatin Ca [Lipitor] 40 mg PO HS #30 tablet 02/03/19 Dextran 70/Hypromellose/Pf [Artificial Tears Drops] 1 each OP TID 7 Days #1 droperette 02/03/19 Levothyroxine [Synthroid -] 25 mcg PO DAILY #30 tablet 02/03/19 Prednisone See Taper PO DAILY #21 tablet 02/03/19 ATTENDING PHYSICIAN STATEMENT I saw and evaluated the patient. I reviewed the resident's note and discussed the case with the resident. I agree with the resident's findings and plan as documented. SUBJECTIVE: OBJECTIVE: ASSESSMENT AND PLAN:
== END 2019-02-03 15:21 | disposition home or self-care (01) ==
LOC: JER 22:11 → JERBED 02-02 00:37 → INTOOBSV 02-02 00:37 → J4W 02-02 13:47
PROVIDERS: ADMIT Internal Medicine; ATTEND Internal Medicine
PROC: 3E0337Z Introduction of Electrolytic and Water Balance Substance into Peripheral Vein, Percutaneous Approach (ICD-10-PCS; principal; 2019-02-02)
DX: R29.810 Facial weakness (principal); E03.9 Hypothyroidism, unspecified; E78.5 Hyperlipidemia, unspecified
CPT/HCPCS: 36415; 70450-TC; 70496-TC; 70551-TC; 80048; 80053; 80061; 80307; 81003; 82550; 82607; 82746; 83036; 83721; 83735; 83880; 84439; 84443; 84484; 84703; 85025; 85610; 85730; 86593; 86618; 93005; 93010; 93880-TC; 99285-25; G0378; J7030

== ENCOUNTER 2022-03-14 16:30 | Emergency (ER) | payer OTHER ==
[2022-03-14 16:38] VITALS: BP 112/80; PULSE 63; RESP 18; TEMP 97.8; BMI 28.3
[2022-03-14] MEDS ORDERED: SODIUM CHLORIDE 1,000 ML IV STA (18:10)
[2022-03-14] MEDS ORDERED: METOCLOPRAMIDE HCL INJECTION 10 MG/2 ML VIAL IVPUSH ONE (18:10)
[2022-03-14] MEDS ORDERED: METOCLOPRAMIDE HCL INJECTION 10 MG/2 ML VIAL ONE (18:47)
[2022-03-14 19:17] LABS: BASO % 0.5 % (0-2.0); HEMATOCRIT 32.5 % (32.4-45.2); HEMOGLOBIN 10.5 GM/dL (10.7-15.3); LYMPH % 36.2 % (8-40); MCHC 32.4 g/dl (32.0-36.0); MEAN CELL VOLUME 67.9 fl (80-96); MEAN PLT VOLUME 7.8 fl (7.5-11.1); MONO % 7.2 % (3.8-10.2); NEUT % 53.1 % (42.8-82.8); PLATELET COUNT 408 10^3/uL (134-434); RBC 4.79 M/mm3 (3.60-5.2); RDW 18.5 % (11.6-15.6); WHITE BLOOD COUNT 6.8 K/mm3 (4.0-10.0)
[2022-03-14 19:39] LABS: BLOOD UREA NITROGEN 12.6 mg/dL (7-18); CALCIUM 9.3 mg/dL (8.5-10.1)
[2022-03-14 19:42] LABS: CREATININE 0.7 mg/dL (0.55-1.3)
[2022-03-14 19:44] LABS: BILIRUBIN,TOTAL 0.4 mg/dL (0.2-1); TOT PROT 7.9 g/dl (6.4-8.2)
[2022-03-14] MEDS ORDERED: KETOROLAC TROMETHAMINE 30 MG/1 ML VIAL IVPUSH ONE (19:56)
[2022-03-14] MEDS ORDERED: KETOROLAC TROMETHAMINE 30 MG/1 ML VIAL ONE (19:59)
[2022-03-14 20:50] LABS: URINE APPEARANCE CLEAR; URINE BILIRUBIN NEGATIVE (NEGATIVE); URINE COLOR YELLOW; URINE GLUCOSE (UA) NEGATIVE (NEGATIVE); URINE KETONE NEGATIVE (NEGATIVE); URINE LEUK ESTERASE NEGATIVE (NEGATIVE); URINE NITRITE NEGATIVE (NEGATIVE); URINE PROTEIN NEGATIVE (NEGATIVE); URINE UROBILINOGEN 0.2 mg/dL (0.2-1.0)
[2022-03-14 20:52] LABS: HCG,QUALITATIVE URINE Negative
[2022-03-14 21:38] LABS: ANISOCYTOSIS 1+; MACROCYTOSIS 0; OVALOCYTE 1+
[2022-03-14 21:56] LABS: PLATELET ESTIMATE ADEQUATE
== END 2022-03-14 21:23 | disposition home or self-care (01) ==
LOC: JER 16:30
PROC: 3E033GC Introduction of Other Therapeutic Substance into Peripheral Vein, Percutaneous Approach (ICD-10-PCS; principal; 2022-03-14)
PROC: 3E0333Z Introduction of Anti-inflammatory into Peripheral Vein, Percutaneous Approach (ICD-10-PCS; 2022-03-14)
PROC: 3E033GC Introduction of Other Therapeutic Substance into Peripheral Vein, Percutaneous Approach (ICD-10-PCS; 2022-03-14)
PROC: 3E0337Z Introduction of Electrolytic and Water Balance Substance into Peripheral Vein, Percutaneous Approach (ICD-10-PCS; 2022-03-14)
DX: G44.86 Cervicogenic headache (principal)
CPT/HCPCS: 36415; 70450-TC; 80053; 81003; 84703; 85025; 87086; 99284-25

== ENCOUNTER 2023-01-04 11:04 | Day surgery (SDC) | payer OTHER ==
[2023-01-03 13:54] VITALS: BMI 28.3
[2023-01-04 11:19] VITALS: RESP 18
[2023-01-04] MEDS ORDERED: PROPOFOL 40 ML ONE (12:18)
[2023-01-04 12:59] VITALS: PULSE 63; TEMP 97
[2023-01-04 13:15] VITALS: BP 110/56
== END 2023-01-04 13:27 | disposition home or self-care (01) ==
LOC: FASU-ENDO 11:04
PROVIDERS: ATTEND Internal Medicine Gastroenterology
PROC: 0DJD8ZZ Inspection of Lower Intestinal Tract, Via Natural or Artificial Opening Endoscopic (ICD-10-PCS; principal; 2023-01-04 12:29)
DX: Z12.11 Encounter for screening for malignant neoplasm of colon (principal); K64.1 Second degree hemorrhoids
CPT/HCPCS: 81025

== ENCOUNTER 2023-03-29 11:20 | Day surgery (SDC) | payer OTHER ==
[2023-03-27 15:50] VITALS: BMI 28.3
[2023-03-29 11:43] VITALS: RESP 16
[2023-03-29 12:43] VITALS: TEMP 97
[2023-03-29 13:00] VITALS: BP 128/74; PULSE 70
== END 2023-03-29 13:18 | disposition home or self-care (01) ==
LOC: FASU-ENDO 11:20
PROVIDERS: ATTEND Internal Medicine Gastroenterology
PROC: 0DB68ZX Excision of Stomach, Via Natural or Artificial Opening Endoscopic, Diagnostic (ICD-10-PCS; 2023-03-29)
PROC: 0DB48ZX Excision of Esophagogastric Junction, Via Natural or Artificial Opening Endoscopic, Diagnostic (ICD-10-PCS; 2023-03-29)
PROC: 0DB98ZX Excision of Duodenum, Via Natural or Artificial Opening Endoscopic, Diagnostic (ICD-10-PCS; principal; 2023-03-29 12:31)
DX: K29.50 Unspecified chronic gastritis without bleeding (principal); K29.80 Duodenitis without bleeding; K20.90 Esophagitis, unspecified without bleeding
CPT/HCPCS: 81025; 88305-TC